=== PATIENT | male | born 1975 | race Caucasian/White ===

== ENCOUNTER 2017-01-18 18:39 | Emergency (ER) | payer SELFPAY ==
--- NOTE | 2017-01-18 19:02 | ER Document Report ---
ED Psych Disorder / Suicide - General Mode of Arrival: Medic Information source: Patient - HPI Patient complains to provider of: Suicidal attempt Associated symptoms: Other - See above <CELIA ROSAS - Last Filed: 01/18/17 21:23> <KAILYN GREEN - Last Filed: 01/19/17 03:21> - General Chief Complaint: Suicidal Ideation Stated Complaint: SUICIDAL IDEATION Notes: Patient is a 41 year old male who presents to the emergency department via EMS for attempted suicide. Patient states that he cut his left wrist, and "didn't realize that the vein was so deep". Patient states he has never attempted anything like this before. Patient reports he does not currently see a counselor or therapist and says they are "worthless". Patient denies having taken any pills or alcohol prior to arrival. Patient reports he is eating and drinking normally. Patient currently takes Effexor. (CELIA ROSAS) Past Medical History - General Information source: Patient - Social History Smoking Status: Unknown if Ever Smoked Family History: Reviewed & Not Pertinent Psychiatric Medical History: Reports: Hx Depression <CELIA ROSAS - Last Filed: 01/18/17 21:23> Review of Systems - Review of Systems Constitutional: No symptoms reported EENT: No symptoms reported Cardiovascular: No symptoms reported Respiratory: No symptoms reported Gastrointestinal: No symptoms reported. denies: Poor appetite, Poor fluid intake Genitourinary: No symptoms reported Male Genitourinary: No symptoms reported Musculoskeletal: No symptoms reported Skin: No symptoms reported Hematologic/Lymphatic: No symptoms reported Neurological/Psychological: See HPI, Suicidal ideation -: Yes All other systems reviewed and negative <CELIA ROSAS - Last Filed: 01/18/17 21:23> Physical Exam - Vital signs Interpretation: Normal - General General appearance: Alert, Other - Disheveled - HEENT Head: Normocephalic, Atraumatic - Respiratory Respiratory status: No respiratory distress Chest status: Nontender Breath sounds: Normal Chest palpation: Normal - Cardiovascular Rhythm: Regular Heart sounds: Normal auscultation Murmur: No - Abdominal Inspection: Normal Distension: No distension Bowel sounds: Normal Tenderness: Nontender Organomegaly: No organomegaly - Extremities General upper extremity: Other - 1cm vertical laceration on volar aspect of left wrist, bleeding is controlled General lower extremity: Normal inspection - Neurological Neuro grossly intact: Yes Cognition: Normal Orientation: AAOx4 Janki Coma Scale Eye Opening: Spontaneous Janki Coma Scale Verbal: Oriented Janki Coma Scale Motor: Obeys Commands [place] Coma Scale Total: 15 Speech: Normal - Psychological Associated symptoms: Flat affect - Skin Skin Temperature: Warm Skin Moisture: Dry Skin Color: Normal <CELIA ROSAS - Last Filed: 01/18/17 21:23> Course - Laboratory Result Diagrams: 01/18/17 19:20 01/18/17 19:20 <CELIA ROSAS - Last Filed: 01/18/17 21:23> - Laboratory Result Diagrams: 01/18/17 19:20 01/18/17 19:20 <KAILYN GREEN - Last Filed: 01/19/17 03:21> - Re-evaluation Re-evalutation: 01/19/17 Patient with self-inflicted laceration wrist. Patient states that he has been depressed recently and has thought of hurting himself in the past. Patient is medically stable. Patient will be placed on involuntary commitment paperwork and held for mental health evaluation. Medically stable. (KAILYN GREEN) - Vital Signs Vital signs: Temp Pulse Resp BP Pulse Ox 98.4 F 73 18 134/80 H 97 01/18/17 19:58 01/18/17 19:58 01/18/17 19:58 01/18/17 19:58 01/18/17 19:58 - Laboratory Laboratory results interpreted by me: 01/18/17 19:20 BUN 31 H Glucose 115 H Salicylates < 1.0 L Acetaminophen < 10 L Discharge <CELIA ROSAS - Last Filed: 01/18/17 21:23> <KAILYN GREEN - Last Filed: 01/19/17 03:21> - Discharge Clinical Impression: Self-inflicted laceration of wrist Qualifiers: Encounter type: initial encounter Laterality: left Qualified Code(s): S61.512A - Laceration without foreign body of left wrist, initial encounter Depression Qualifiers: Depression Type: unspecified Qualified Code(s): F32.9 - Major depressive disorder, single episode, unspecified Condition: Stable Disposition: PSYCH HOSP/UNIT Scribe Attestation: 01/19/17 03:21 I personally performed the services described in the documentation, reviewed and edited the documentation which was dictated to the scribe in my presence, and it accurately records my words and actions. (KAILYN GREEN) Scribe Documentation - Scribe Written by Ramakrishnaibe:: messi Martel, [id number] acting as scribe for :: Olya <CELIA ROSAS - Last Filed: 01/18/17 21:23>
[2017-01-18 19:31] LABS: ABSOLUTE BASOPHILS # (AUTO) 0.1 10^3/uL (0.0-0.2); ABSOLUTE EOSINOPHILS # (AUTO) 0.1 10^3/uL (0.0-0.6); ABSOLUTE LYMPHOCYTES (AUTO) 1.7 10^3/uL (0.5-4.7); ABSOLUTE MONOCYTES (AUTO) 0.7 10^3/uL (0.1-1.4); ABSOLUTE NEUT (AUTO) 3.6 10^3/uL (1.7-8.2); BASOPHILS % (AUTO) 1.3 % (0-2); EOSINOPHILS % (AUTO) 1.7 % (0-6); HEMATOCRIT 43.9 % (37.9-51.0); HEMOGLOBIN 15.1 g/dL (13.5-17.0); HGB HCT DIFFERENCE 1.4; LYMPHOCYTES % (AUTO) 27.5 % (13-45); MEAN CORPUSCULAR HEMOGLOBIN 29.6 pg (27.0-33.4); MEAN CORPUSCULAR HGB CONC 34.4 g/dL (32.0-36.0); MEAN CORPUSCULAR VOLUME 86 fl (80-97); MONOCYTES % (AUTO) 10.8 % (3-13); SEGMENTED NEUTROPHILS % (AUTO) 58.7 % (42-78); WHITE BLOOD COUNT 6.1 10^3/uL (4.0-10.5)
[2017-01-18 19:53] LABS: ALANINE AMINOTRANSFERASE 38 U/L (21-72); ALBUMIN 4.2 g/dL (3.5-5.0); ALKALINE PHOSPHATASE 86 U/L (38-126); ANION GAP 12 (5-19); ASPARTATE AMINO TRANSFERASE 39 U/L (17-59); BILIRUBIN,DIRECT 0.2 mg/dL (0.0-0.4); BILIRUBIN,TOTAL 0.5 mg/dL (0.2-1.3); BLOOD UREA NITROGEN 31 mg/dL (7-20); CALCIUM 9.7 mg/dL (8.4-10.2); CARBON DIOXIDE 30 mmol/L (22-30); CHLORIDE 100 mmol/L (98-107); CREATININE RESULT 0.92 mg/dL (0.52-1.25); GLUCOSE 115 mg/dL (75-110); SODIUM 141.7 mmol/L (137-145); TOTAL PROTEIN 6.7 g/dL (6.3-8.2)
[2017-01-18 19:54] LABS: ALCOHOL < 10 mg/dL (NONE DETECTED)
[2017-01-18 20:35] LABS: APPEARANCE,URINE CLEAR; BILIRUBIN,URINE NEGATIVE (NEGATIVE); GLUCOSE, URINE NEGATIVE (NEGATIVE); KETONES,URINE NEGATIVE (NEGATIVE); LEUKOCYTE ESTERASE,URINE NEGATIVE (NEGATIVE); NITRITE,URINE NEGATIVE (NEGATIVE); PROTEIN,URINE NEGATIVE (NEGATIVE); URINE SPECIFIC GRAVITY 1.015; UROBILINOGEN,URINE NEGATIVE mg/dL (<2.0)
[2017-01-18 20:40] LABS: URINE BARBITURATES SCREEN NEGATIVE; URINE METHADONE SCREEN NEGATIVE; URINE OPIATES LOW NEGATIVE; URINE PHENCYCLIDINE SCREEN NEGATIVE
--- NOTE | 2017-01-19 08:12 | EKG REPORT ---
SEVERITY:- NORMAL ECG - SINUS RHYTHM : Confirmed by: Maldonado Cardoza MD 19-Jan-2017 08:11:23
--- NOTE | 2017-01-19 09:43 | ER Document Report ---
Doctor's Note Notes: 01/19/17 09:42 Chart reviewed. This is a 41-year-old male with a history of depression who is here in the emergency department for suicidal ideation after sustaining a self-inflicted laceration to his left wrist. He states he used a razor blade and that "I wish it had just bled all night." Patient is alert and cooperative this morning. Patient is currently under IVC paperwork awaiting psychiatry evaluation. Pt continues to endorse suidical ideation this morning and tells me that he wishes he just had not woken up today. At this time, pt is medically stable and appropriate for IVC and likely transfer for inpatient psychiatric services as he continues to endorse suicidal ideation. 01/19/17 19:58 Patient was reexamined also psychiatry note from today was reviewed. Patient has been cleared for discharge from a psychiatric standpoint and has been recommended that his IVC paperwork be rescinded. Patient is to follow-up with his primary care physician and to stop taking the old medications. At this time the patient tells me that he is not having any thoughts of harming himself and he plans to go home with his friend pete. He states that should he have recurrent thoughts of self-harm that he knows to talk to someone or to call 911 and return to the emergency department. He maintains good eye contact and at this time there is no criteria for IVC to continue. He is very comfortable comfortable with the plan.
--- NOTE | 2017-01-19 09:52 | PSYCHOLOGICAL NOTE ---
Psych Note - Psych Note Psych Note: wPt presents to the ED via EMS. Pt arrives to the ED after cutting his left forearm. Pt is reported to have been "depressed for several weeks" and "felt like bleeding out." Pt denies having been depressed about a single event or occasion, but wanted to "bleed out because it's the best." Pt claims suicidal ideation but denies homicidal ideation. Pt's reported to have cut his left wrist with a razor blade at home. Pt claims he was home alone and his friend called 9-11 as he "usually calls me a lot." Pt claims he is not and has no children at this time. Pt arrives to the ED with his wrist wrapped in gauze. At the time of arrival pt was reported to have scratched his cut causing his wrist to increasingly bleed. Pt is cooperative and answers all questions during this time. Patient discloses that he has "been feeling bad for a while" and that there was no specific events it has just been "building up." Patient disclosed that he cut his wrist and did a "half ass job" because he thought he would just bleed out. Patient states that he has 1 prior attempt approximately 20 years ago when he overdosed on pills. Patient states that he was attempting to just go to sleep and not wake up patient disclosed that he has been psychiatric inpatient 3 times once in [place], [place], in [place] and in [place], [place]. Patient states the last time he was inpatient was approximately 20 years ago. Patient disclosed that he is diagnosed as severely depressed and was on Effexor however stopped taking it about 1 year ago. He continued to disclose that he started again approximately 3 months ago old prescription however he wanted to make it lasts only took it 2 or 3 times a week. Patient refuses to provide collateral information; no information can be located. Patient is alert and orientated to person place time and circumstance. Mood is euthymic with congruent affect. Patient endorses suicidal ideation; presenting to [facility] ED with superficial cut on wrist. Patient has a 1cm vertical laceration on volar aspect of left wrist, bleeding is controlled and no stitches to bandages were required. Clinician notes patient is observed scratching at his wrist and stating to clincican that it was "much deeper" than he realized. Patient denies homicidal ideation. Patient denies auditory and visual hallucinations; no delusions are noted. Thought process is logical, organized and linear. Conversational speech was within normal rate tone and prosody. Eye contact was fair. Intellectual abilities appear to be within average range. Attention and concentration are good. Insight, judgment, impulse control are fair. 311 (F32.9) Unspecified Depressive Disorder per history provided by patient Impression\\plan: Patient is recommended for rescind of IVC is considered psychiatrically cleared for discharge. Patient does not meet IVC criteria per [place] GS 122C. Patient was sporadically self-medicating with old prescription medications. While patient endorses suicidal ideation; intend is questionable with patient was observed picking at his wrist to make it bleed. Clinician notes area of scab appears to be older than 12 hours old with healing skin underneath and no bandaging was needed; at this time it is unclear the patient primary motivation since patient states only that he has been "feeling bad." Patient is recommended to follow up with a provider of your choice and do not take old medication as then can have adverse effects. Dr. Centeno was consulted on the care and management of this patient; attending physician is in agreement with recommendations and disposition.
[2017-01-19 22:20] VITALS: BP 106/73
== END 2017-01-19 21:50 | disposition home or self-care (01) ==
LOC: ER 18:39
DX: F32.9 Major depressive disorder, single episode, unspecified (principal); S61.512A Laceration without foreign body of left wrist, initial encounter; X78.9XXA Intentional self-harm by unspecified sharp object, initial encounter; Y92.009 Unspecified place in unspecified non-institutional (private) residence as the place of occurrence of the external cause
CPT/HCPCS: 36415; 80053; 80307; 81001; 85025; 93005; 93010; 99285

== ENCOUNTER 2017-03-02 17:08 | Emergency (ER) | payer BC ==
[2017-03-02 19:16] LABS: APPEARANCE,URINE CLEAR; BILIRUBIN,URINE NEGATIVE (NEGATIVE); GLUCOSE, URINE NEGATIVE (NEGATIVE); KETONES,URINE NEGATIVE (NEGATIVE); LEUKOCYTE ESTERASE,URINE NEGATIVE (NEGATIVE); NITRITE,URINE NEGATIVE (NEGATIVE); PROTEIN,URINE NEGATIVE (NEGATIVE); URINE SPECIFIC GRAVITY 1.006; UROBILINOGEN,URINE NEGATIVE mg/dL (<2.0)
--- NOTE | 2017-03-02 19:24 | ER Document Report ---
ED Psych Disorder / Suicide - General Chief Complaint: Psych Problem Stated Complaint: IVC WITH PAPERS Mode of Arrival: Ambulatory Information source: Patient, Law Enforcement, Outside Facility Records Notes: This is a 41-year-old male with a history of anxiety and depression and prior suicidal ideation who presents under IVC paperwork from his mental health provider at [facility]. Patient states that he went to a regular scheduled appointment and discuss his feelings and suicidal thoughts, specifically with plan to buy a gun and shoot himself. He also endorsed anger at his employer and thoughts of shooting his employer as well. After discussion about inpatient hospitalization he was noted to have left the clinic. Law enforcement was called and patient was brought to the ER after a short scuffle. At this time he continues to endorse suicidal ideations and states he feels hopeless. TRAVEL OUTSIDE OF THE [place] IN LAST 30 DAYS: No - Related Data Allergies/Adverse Reactions: No Known Allergies Allergy (Verified 03/02/17 17:16) Past Medical History - General Information source: Patient, [facility] Records - Social History Smoking Status: Never Smoker Chew tobacco use (# tins/day): No Frequency of alcohol use: None Drug Abuse: None Family History: Reviewed & Not Pertinent Patient has suicidal ideation: No Patient has homicidal ideation: No Renal/ Medical History: Denies: Hx Peritoneal Dialysis Psychiatric Medical History: Reports: Hx Depression Review of Systems - Review of Systems Constitutional: No symptoms reported. denies: Chills, Fever EENT: No symptoms reported Cardiovascular: No symptoms reported. denies: Chest pain Respiratory: No symptoms reported. denies: Cough, Hurts to breathe Gastrointestinal: No symptoms reported Genitourinary: No symptoms reported Musculoskeletal: No symptoms reported Skin: No symptoms reported Neurological/Psychological: See HPI Physical Exam - Vital signs Vitals: Temp Pulse Resp BP Pulse Ox 98.4 F 121 H 18 138/93 H 100 03/02/17 17:16 03/02/17 17:16 03/02/17 17:16 03/02/17 17:16 03/02/17 17:16 - Notes Notes: PHYSICAL EXAMINATION: GENERAL: Well-appearing, well-nourished and in no acute distress. Pleasant and conversant with good eye contact and good cooperation with interview. HEAD: Atraumatic, normocephalic. EYES: Pupils equal round and reactive to light, extraocular movements intact, sclera anicteric, conjunctiva are normal. ENT: nares patent, oropharynx clear without exudates. Moist mucous membranes. NECK: Normal range of motion, supple without lymphadenopathy LUNGS: Breath sounds clear to auscultation bilaterally and equal. No wheezes rales or rhonchi. HEART: Tachycardic rate and regular rhythm without murmurs ABDOMEN: Soft, nontender, normoactive bowel sounds. No guarding, no rebound. No masses appreciated. EXTREMITIES: Normal range of motion. Superficial abrasion to left anterior [place]. NEUROLOGICAL: Cranial nerves grossly intact. Normal speech. No gross focal motor or sensory deficits appreciated. PSYCH: Normal mood, depressed and sad affect. Denies any audiovisual hallucinations. He does actively endorse suicidal ideation. He denies any homicidal ideation at this time Course - Re-evaluation Re-evalutation: 03/03/17 04:35 Pateint has remained calm and cooperative overnight, no acute issues. He is medically clear. He is to be evaluated by mental health later this morning. - Vital Signs Vital signs: Temp Pulse Resp BP Pulse Ox 98.4 F 121 H 18 138/93 H 100 03/02/17 17:16 03/02/17 17:16 03/02/17 17:16 03/02/17 17:16 03/02/17 17:16 - Laboratory Result Diagrams: 03/02/17 17:35 03/02/17 17:35 Laboratory results interpreted by me: 03/02/17 17:35 BUN 21 H Glucose 123 H Salicylates < 1.0 L Acetaminophen < 10 L Discharge - Discharge Clinical Impression: Suicidal ideation Condition: Stable Disposition: PSYCH HOSP/UNIT
[2017-03-02 19:31] LABS: URINE BARBITURATES SCREEN NEGATIVE; URINE METHADONE SCREEN NEGATIVE; URINE OPIATES LOW NEGATIVE; URINE PHENCYCLIDINE SCREEN NEGATIVE
[2017-03-02 21:06] LABS: ABSOLUTE LYMPHOCYTES (AUTO) 1.4 10^3/uL (0.5-4.7); ABSOLUTE MONOCYTES (AUTO) 0.3 10^3/uL (0.1-1.4); ABSOLUTE NEUT (AUTO) 4.4 10^3/uL (1.7-8.2); BASOPHILS % (AUTO) 0.7 % (0-2); EOSINOPHILS % (AUTO) 0.5 % (0-6); HEMATOCRIT 45.8 % (37.9-51.0); HEMOGLOBIN 15.6 g/dL (13.5-17.0); LYMPHOCYTES % (AUTO) 22.6 % (13-45); MEAN CORPUSCULAR VOLUME 85 fl (80-97); MONOCYTES % (AUTO) 5.5 % (3-13); RED BLOOD COUNT 5.36 10^6/uL (4.35-5.55); RED CELL DISTRIBUTION WIDTH 13.8 % (11.5-14.0); SEGMENTED NEUTROPHILS % (AUTO) 70.7 % (42-78); WHITE BLOOD COUNT 6.2 10^3/uL (4.0-10.5)
[2017-03-02 21:18] LABS: ALANINE AMINOTRANSFERASE 27 U/L (21-72); ALBUMIN 4.3 g/dL (3.5-5.0); ALKALINE PHOSPHATASE 81 U/L (38-126); ANION GAP 17 (5-19); ASPARTATE AMINO TRANSFERASE 25 U/L (17-59); BILIRUBIN,DIRECT 0.2 mg/dL (0.0-0.4); BILIRUBIN,TOTAL 0.4 mg/dL (0.2-1.3); BLOOD UREA NITROGEN 21 mg/dL (7-20); CALCIUM 9.8 mg/dL (8.4-10.2); CARBON DIOXIDE 25 mmol/L (22-30); CHLORIDE 101 mmol/L (98-107); CREATININE RESULT 0.78 mg/dL (0.52-1.25); GLUCOSE 123 mg/dL (75-110); POTASSIUM 4.4 mmol/L (3.6-5.0); SODIUM 142.9 mmol/L (137-145)
[2017-03-02 21:19] LABS: ALCOHOL < 10 mg/dL (NONE DETECTED)
--- NOTE | 2017-03-03 08:14 | EKG REPORT ---
SEVERITY:- NORMAL ECG - SINUS RHYTHM : Confirmed by: Maldonado Cardoza MD 03-Mar-2017 08:12:40
--- NOTE | 2017-03-03 10:04 | ER Document Report ---
Doctor's Note Notes: 03/03/17 10:04 As the rounding physician this AM, I assessed the patient's labs, vitals, and records. No concerning findings this morning. Patient denies any acute complaints. He is cleared for evaluation and disposition by psychiatry
[2017-03-03 14:46] VITALS: BP 111/78
== END 2017-03-03 14:59 ==
LOC: ER 17:08
DX: R45.851 Suicidal ideations (principal); F41.9 Anxiety disorder, unspecified; F32.9 Major depressive disorder, single episode, unspecified
CPT/HCPCS: 36415; 80053; 80307; 81001; 85025; 93005; 93010; 99285